=== PATIENT | female | born 1960 | race Caucasian/White ===

== ENCOUNTER 2023-02-15 06:23 | Day surgery (SDC) | payer MEDICAID, SELFPAY ==
[2023-02-15] VITALS (9 sets, daily range): BP systolic 128–173; BP diastolic 79–107; PULSE 77–91; RESP 16; TEMP 36.2–36.6; O2SAT 94–100; BMI 23.4
[2023-02-15] MEDS: LACTATED RINGERS 1000 ML 1,000 ML 100 ML IV (07:20)
[2023-02-15] MEDS: fentaNYL 100 MCG/2 ML inj IVP (07:20)
[2023-02-15] MEDS: MIDAZOLAM HCL 1 MG/ML inj IVP (07:20)
--- NOTE | 2023-02-15 07:47 | W.PM.H&PU ---
History & Physical Update History & Physical Update H&P Reviewed and patient assessed: No changes noted
[2023-02-15] MEDS: SODIUM CHLORIDE 0.9 % (FLUSH) 10 ML SYRINGE IVF (08:06)
--- NOTE | 2023-02-15 08:26 | SUR.PREOP ---
TIME?OUT:?0815 PT/RN/MDA?VERIFICATION?OF?SURGICAL?SITE Left Thumb,?PROCEDURE Ax Block,?AND?CONSENT OBTAINED?PRIOR?TO?INVASIVE?PROCEDURE.
--- NOTE | 2023-02-15 08:55 | P.NB_ITS ---
Nerve Block Nerve Block Time Seen by Provider: 08:20 Date Seen: 02/15/23 Type of block requested by surgeon for post-operative analgesia: axillary Side: left Time out performed: Yes Verification of patient name: Yes Verification of date of : Yes Site marking: site marked Name of person performing procedure: Mele Continuous monitoring Was continuous monitoring of O2 sat, B/P, teletypesetter monitor, recorded every 15 minutes?: Yes Procedure Checklist: sterile prep, needles and gloves Ultrasound guided. Images saved: Yes Medications given in 5ml increments after negative aspiration: Ropivicaine %: 0.5 mL: 30 Needle gauge: 22 Patient tolerated procedure well: Yes Additional comments: Needle noted adjacent to nerve Block Charges Block Charge (with Pro Fee): Brachial Plexus Use of Ultrasound Machine for Block: Yes- US Guidance/pain block
--- NOTE | 2023-02-15 08:55 | W.ANESCHARGE ---
Anesthesia Charges Start Date/Time Anesthesia Start Date: 02/15/23 Anesthesia Start Time: 09:26 Stop Date/Time Anesthesia Stop Date: 02/15/23 Anesthesia Stop Time: 11:40
[2023-02-15] MEDS: CEFAZOLIN 2 GM in 0.9 % SODIUM CHLORIDE Mini-bag 100 ML IVPB (09:46)
--- NOTE | 2023-02-15 11:17 | PM.ORPRC ---
Procedure Note Date of procedure: 02/15/23 Procedure: PREOPERATIVE DIAGNOSIS: 1. Left thumb CMC osteoarthritis, primary, severe 2. Left trigger thumb-flexor tenosynovitis POSTOPERATIVE DIAGNOSIS: 1. Left thumb CMC osteoarthritis, primary, severe 2. Left trigger thumb-flexor tenosynovitis PROCEDURE: 1. Left thumb CMC arthroplasty with transfer of FCR tendon carpometacarpal area without free graft / tendon interposition (LRTI) 2. Left open trigger thumb release/A1 equivalent farhana release SURGEON: Sravan Lauren M.D. RECORDS MANAGEMENT ASSOCIATE: Bryon Peterson. Of note, an medical office assistant instructor was critical for this case to aid in patient positioning, arm manipulation, instrument exchange, and closure. ANESTHESIA: Regional block EBL: 5 mL TOURNIQUET: 75 min at 225 torr-forearm tourniquet IMPLANTS: Arthrex 4.75 mm BioComposite interference screw COMPLICATIONS: None evident INDICATIONS: The patient is a pleasant 62-year-old female. They have experienced significant pain about the thumb CMC joint on the left upper extremity. Nonoperative management including cortisone injection, activity modification, bracing, rest, oral NSAIDs, etc has not provided long-term relief. In addition, the thumb has been triggering/catching with pain about the volar MCP joint region. This is also been a functional limitation for her. Given the failure of nonoperative management, surgery was recommended. FINDINGS: Severe osteoarthritis of the 1st CMC joint seen by osteophyte formation, chondral loss, and joint space narrowing, consistent with CMC osteoarthritis. DESCRIPTION OF PROCEDURE: After a thorough discussion of risks, benefits, and alternatives, the patient was brought to the operating room and placed upon the operating table. Induction of anesthesia was undertaken as previously noted. 2 g IV Ancef was administered within 1 hr incision preoperatively. Appropriate time-out was performed identifying proper patient, site, and procedure. The left upper extremity was prepped and draped in the appropriate sterile fashion using ChloraPrep. The limb was exsanguinated and tourniquet inflated. A curvilinear incision was made along the ulnar border of the 1st metacarpal with the curved portion extending volar just proximal to the CMC joint. Sharp incision through skin and blunt dissection to subcutaneous tissue allowed identification and protection of the crossing neurovascular structures including the SBRN. The dorsal capsule off the metacarpal base was sharply divided and subperiosteally elevated. The crossing branch of radial artery was visualized in the proximal extent of the wound, its small branches to the capsule were coagulated, but the rest the artery was protected. The trapezium was freed from the surrounding capsular tissues circumferentially with a combination of 15 blade and a [place] blade. After freeing the trapezium from the superficial tissues, the bone was quartered with a microsagittal saw a majority of the way through the bone. Caution was taken not to penetrate completely so as not to injure the FCR tendon in the deep portion of the wound. The osteotomy was completed with an osteotome. The quartered fragments were then removed with a combination of a rongeur, and sharp dissection cautiously with the [place] blade. We then turned our attention to the FCR tendon harvest for transfer. The tendon was easily palpable approximately 10 cm proximal from the wrist crease. A transverse incision was made overlying this musculotendinous junction. Blunt dissection through subcutaneous tissue allowed identification of the FCR tendon and sheath. The FCR was probed in the deep portion of the trapezium wound, and after talking on this, confirmed the more proximal location of the FCR. The FCR sheath was entered, the tendon sharply divided from the deeper muscle, and a Metzenbaum scissors was utilized to release any adhesions within the sheath distally toward the wrist. We also released any adhesions within the FCR tunnel through the carpus with a [place] elevator. Then a combination of a probe and a hemostat allowed us to bluntly free and exposed the FCR tendon out the trapezial void. 2-0 FiberWire was utilized to capture the deep capsule for eventual anchovy securing of the transferred FCR tendon and a 2nd 2-0 FiberWire was passed near the FCR tendon insertion for eventual reapproximation of the looped tendon onto itself. In order to pass it through the metacarpal base, a guide pin was passed approximately 12 mm distal from the metacarpal base in plane with the thumbnail directed towards the metacarpal base coming out through the articular surface / beak junction. After confirming proper location, this was over reamed with a 5 mm Reamer. A tendon Passer was then utilized to help transfer the freed FCR tendon through this tunnel. Once the thumb was held in proper position of slight traction and slight extension with neutral rotation and abduction, the tendon was looped back on itself and tied with the previously passed 2-0 FiberWire secured to the deeper FCR near the 2nd metacarpal base distal insertion site. Next, the interference screw was placed while controlling the thumb from distal toward the proximal. We then reapproximated the dorsal capsule through the now passed tendon with 3-0 Vicryl. This occurred while positioning the thumb metacarpal in slight abduction and extension with proper height maintained based on direct visualization to the 2nd metacarpal base. Finally, 2-0 FiberWire was utilized to capture the deep capsule for eventual anchovy securing of the transferred FCR tendon. We then created an anchovy with remaining tendon with 2 separate Jacinto needles that allowed us to pass the tails of the deeper capsular 2-0 FiberWire through this. Excellent securing of the tendon was achieved. We then turned our attention to the left trigger thumb release. An incision was made on the palmar surface of the hand overlying the MCP joint region of the appropriate digit(s) respecting the palmar creases being cautious not to cross these perpendicularly. Sharp incision through the skin, and blunt dissection through subcutaneous tissue allowing protection of crossing neurologic structures. The A1 farhana was visualized directly. It was incised sharply with a 15 blade. It was released completely from its distal to proximal extent under direct visualization. The tendon was inspected and found to be mildly striated consistent with some friction. Otherwise, it was intact. The tendon was removed out of the wound, and further inspected. The patient was asked to manually flex and extend the digits and showed no further catching. The catching which was visualized after tourniquet inflation, was no longer evident with reproduction of a manual fist and relaxation. Closure was performed with 4-O nylon in interrupted fashion. Soft dressings were applied, and the patient was transferred to the recovery room in stable condition. A thorough irrigation with normal saline was then performed. Closure was performed with 3-0 Vicryl for subcutaneous, and 4-0 Monocryl for subcuticular layers, respectively for the thumb CMC arthroplasty portion and the mid forearm incision. Otherwise, 4-0 nylon was utilized for skin closure of the trigger release. Tourniquet was deflated. Patient was woken from anesthesia and transferred to recovery room in stable condition. PLAN: 1. Elevate operative extremity at or above heart level. 2. Ice, acetominophen and/or ibuprofen, and Percocet for pain as needed. 3. Finger/wrist range of motion as tolerated. 4. Keep the splint clean, dry, and intact until follow-up. 5. Follow up with PA visit in 2 weeks removal of splint and removal of nylon sutures for the thumb volar trigger release as well as application of thumb spica cast. Then follow-up at the 4 week jt for removal of cast and OT visit for Orthoplast splint fabrication which should be scheduled immediately after the orthopedic clinic visit that day on the 4 week jt
[2023-02-15] MEDS: BACITRACIN OINTMENT BULK TUBE 1 APPLIC TOPICAL (11:22)
--- NOTE | 2023-02-15 11:43 | W.ANESCHARGE ---
Anesthesia Charges Start Date/Time Anesthesia Start Date: 02/15/23 Anesthesia Start Time: 09:26 Stop Date/Time Anesthesia Stop Date: 02/15/23 Anesthesia Stop Time: 11:40
== END 2023-02-15 13:00 | disposition home or self-care (01) ==
PROVIDERS: PCP Obstetrics & Gynecology; Visit Provider Orthopaedic Surgery Sports Medicine
PROC: (CPT 26055; principal; 2023-02-15 08:45)
DX: M18.12 Unilateral primary osteoarthritis of first carpometacarpal joint, left hand (principal); M65.312 Trigger thumb, left thumb; M65.842 Other synovitis and tenosynovitis, left hand; G89.18 Other acute postprocedural pain
CPT/HCPCS: 26055; 25447; 25310; 01810; 64415; 76942; A4580; C1713; J0690; J2250; J2405; J2704; J2795; J3010; J3490; J7120